=== PATIENT | male | born 1960 | race Caucasian/White ===

== ENCOUNTER 2016-10-14 15:42 | Emergency (ER) | payer OTHER ==
[~2016-10-14] VITALS: Ht 162.6 cm; Wt 150.0 kg
[~2016-10-14 15:42] MED LIST: ANTIVERT25 MG PO; ASPIR-TRIN325 M1 PO; ATORVASTATIN CA10 MG PO; BYSTOLIC10 MG PO; DICLOFENAC POTA50 MG PO; DICLOFENAC SODI75 MG PO; Ecotrin PO; LO-DOSE ASPIRIN81 M1 PO; METAXALONE800 MG PO; MOTRIN800 MG PO; NAPROXEN500 MG PO; OMEPRAZOLE40 M1 PO; OMEPRAZOLE40 MG PO; PROAIR HFA8.5 GM IH; PROTONIX40 MG PO; TIZANIDINE HCL4 MG PO; TRAMADOL HCL50 MG PO; TYLENOL EXTRA500 MG PO; TYLENOL WITH C1 EACH PO; VALIUM5 MG PO; VOLTAREN75 MG PO; ZANTAC150 MG PO
[2016-10-14 16:26] LABS: HEMATOCRIT 42.2 % (38.0-50.0); MCH 30.6 PG (29.0-34.0); MCV 95.7 FL (86-99); MEAN PLAT.VOLUME 9.3 uM^3 (9.0-12.4); PLATELET COUNT 280 K/uL (156-360); RBC DIS.WIDTH-CV 13.1 % (11.8-14.6); RBC DIS.WIDTH-SD 46.1 % (39-53); RED BLOOD COUNT 4.41 M/uL (4.00-5.50); WHITE BLOOD COUNT 9.2 K/uL (4.1-10.2)
[2016-10-14 16:38] LABS: CHLORIDE 108 mEq/L (99-109); SODIUM 141 mEq/L (136-147)
[2016-10-14 16:40] LABS: GLUCOSE 104 mg/dL (70-99)
[2016-10-14 16:41] LABS: ANION GAP 8 MEQ/L (2-14)
[2016-10-14 16:44] LABS: GFR ESTIMATE (CALCULATED) > 59 mL/min/
[2016-10-14 16:45] LABS: UREA NITROGEN (BUN) 17 mg/dL (9-23)
[2016-10-14 17:41] LABS: ADD MIUA? NO; BILIRUBIN NEGATIVE; BLOOD NEGATIVE; COLOR YELLOW ((YELLOW)); GLUCOSE (STRIP) NEGATIVE; KETONES NEGATIVE; LEUKOCYTES NEGATIVE; NITRITE NEGATIVE; PROTEIN (STRIP) NEGATIVE; SPECIFIC GRAVITY 1.015 (1.000-1.030); UCUL ADDED? NO; UROBILINOGEN 0.2 MG/DL (0.2-1.0)
[2016-10-14 18:07] LABS: TOTAL BILIRUBIN 0.3 mg/dL (0.0-1.0)
[2016-10-14 18:08] LABS: ALKALINE PHOSPHATASE 92 IU/L (3-129)
[2016-10-14 18:11] LABS: DIRECT BILIRUBIN 0.1 mg/dL (0.0-0.3)
[2016-10-14 18:12] LABS: LIPASE 22 U/L (1.0-51.0)
[2016-10-14] MEDS ORDERED: SKELAXIN800 MG PO (20:15)
[2016-10-14] MEDS ORDERED: NAPROSYN500 MG PO (20:15)
[2016-10-14] MEDS ORDERED: PERCOCET 5/31 TABLET PO (20:15)
[2016-10-14 20:31] VITALS: BP 96/80
== END 2016-10-14 20:32 | disposition home or self-care (01) ==
LOC: EME 15:42 → RME 15:42
DX: S29.012A Strain of muscle and tendon of back wall of thorax, initial encounter (principal)
CPT/HCPCS: 80048; 80076; 81003; 83690; 85027; 99281; 99283; J3010